=== PATIENT | male | born 1980 | race Caucasian/White ===

== ENCOUNTER 2022-05-30 12:07 | Emergency (ER) | payer OTHER ==
[~2022-05-30] VITALS: Ht 157.5 cm; Wt 88.5 kg
--- NOTE | 2022-05-30 12:17 | NUR ---
TO ER BED 9. BIBS C/P ACUTE PALPITATION WITH BLURRY VISION NOTED TODAY WHILE WORKING, PT WAS NOTABLE ANXIOUS WHILE BEING TRIAGED. ATTACHED TO MONITOR. VITALS ARE WITH NORMAL LIMITS, NO RESP DISTRESS NOTED. WARM BLNAKET PROVIDED FOR COMFORT. AWAITING MD MENEZES.
--- NOTE | 2022-05-30 14:25 | NUR ---
LAB AT BEDSIDE
[2022-05-30] MEDS ORDERED: LORAZEPAM 1 MG TABLET ONE (14:27)
[2022-05-30] MEDS ORDERED: LORAZEPAM 1 MG TABLET PO ONE (14:30)
--- NOTE | 2022-05-30 14:31 | NUR ---
IV ESTABLISHED L AC 20G. SALINE IS LOCKED.
--- NOTE | 2022-05-30 14:33 | NUR ---
X RAY AT BEDSIDE
[2022-05-30 14:50] LABS: BASOPHILS % (AUTO) 0.5 % (0.0-2.0); EOSINOPHILS % (AUTO) 0.5 % (0.0-6.0); HEMATOCRIT 42 % (39-51); HEMOGLOBIN 14.1 g/dL (13.5-17.5); LYMPHOCYTES % (AUTO) 16.3 % (20.0-44.0); MEAN CORPUSCULAR HGB CONC 34 g/dl (31.0-36.0); MEAN CORPUSCULAR VOLUME 83 fL (80-96); MONOCYTES # (AUTO) 0.3 K/uL (0.1-1.30); MONOCYTES % (AUTO) 5.7 % (2.0-12.0); NEUTROPHILS # (AUTO) 4.6 K/uL (1.8-8.9); PLATELET COUNT (AUTO) 221 K/uL (150-450); RED BLOOD CELL COUNT(AUTO) 5.02 MIL/uL (4.5-6.0); WHITE BLOOD COUNT (AUTO) 5.9 K/uL (4.3-11.0)
[2022-05-30 15:13] LABS: CREATININE 0.9 mg/dL (0.6-1.3); GLUCOSE 123 mg/dL (74-106); UREA NITROGEN, BLOOD 13 mg/dL (7-18)
[2022-05-30 16:54] LABS: CARBON DIOXIDE 27 mmol/L (21-32); CHLORIDE 105 mmol/L (98-107); POTASSIUM 4.3 mmol/L (3.5-5.1); SODIUM SERUM 139 mmol/L (136-145)
[2022-05-30] MEDS ORDERED: HYDR-500 PO (17:44)
[2022-05-30 18:05] VITALS: BP 144/83
--- NOTE | 2022-05-30 18:05 | NUR ---
Patient discharged to home in stable condition. Written and verbal after care instructions given. Patient verbalizes understanding of instruction.IV removed. Catheter intact and site benign. Pressure and 4x4 applied to site. No bleeding noted.
== END 2022-05-30 18:05 | disposition home or self-care (01) ==
LOC: ER 12:20
DX: F41.0 Panic disorder [episodic paroxysmal anxiety] (principal); R07.89 Other chest pain; Z79.899 Other long term (current) drug therapy
CPT/HCPCS: 36415; 71045-TC; 80048-TC; 84484-TC; 85025-TC